=== PATIENT | male | born 1935 | race Caucasian/White ===

== ENCOUNTER 2019-02-23 14:34 | Emergency (ER) | payer OTHER ==
[~2019-02-23] VITALS: Ht 185.4 cm; Wt 104.3 kg
[2019-02-23 14:46] VITALS: BP_SYST 167
== END 2019-02-23 15:30 | disposition left against medical advice (07) ==
LOC: SED 14:34
DX: S60.511A Abrasion of right hand, initial encounter (principal); S80.812A Abrasion, left lower leg, initial encounter; Z53.21 Procedure and treatment not carried out due to patient leaving prior to being seen by health care provider; V43.52XA Car driver injured in collision with other type car in traffic accident, initial encounter; Y93.89 Activity, other specified; Y92.410 Unspecified street and highway as the place of occurrence of the external cause; Y99.8 Other external cause status